=== PATIENT | male | born 1995 | race Caucasian/White ===

== ENCOUNTER 2021-05-06 11:23 | Emergency (ER) | payer OTHER ==
[2021-05-06 11:39] VITALS: RESP 18; TEMP 98.6
[2021-05-06 13:18] VITALS: BP 120/80; PULSE 80
--- NOTE | 2021-05-06 13:25 | ED ---
Overdose HPI - General Chief Complaint: Overdose Stated Complaint: overdose Source: patient Mode of arrival: EMS Limitations: no limitations - History of Present Illness Initial Comments: 26-year-old male presents to the emergency department after he became unresponsive when he was on a walk with his family. The patient states that he is on Suboxone. He normally takes 8 mg daily however has been weaning himself off. States that he has not taken 8 mg in the past week and a half. She took 4 mg for a few days and was down to 2 mg. This morning the patient did take an 8 mg dose of his Suboxone and states that it made him overly sedated. He remembers walking, feeling extremely fatigued and passed out. He denies taking any other sedating medications or illicit drugs. He reports he take his medications from 9 AM. Denies suicidal ideations. Family at bedside stated that he maintained his pulse. They did provide him rescue breaths. EMS arrived and gave him 2 mg intranasal and 2 mg IM of Narcan. Patient did have immediate response. Patient arrives alert, oriented able to answer questions appropriately. No CPR was performed. He denies any recent illnesses. No trauma from his syncopal episode. No other alleviating, precipitating or modifying factors - Related Data Allergies Allergy/AdvReac Type Severity Reaction Status Date / Time No Known Allergies Allergy Verified 05/06/21 11:39 Review of Systems ROS Statement: Those systems with pertinent positive or pertinent negative responses have been documented in the HPI. ROS Other: All systems not noted in ROS Statement are negative. Past Medical History Past Medical History: No Reported History History of Any Multi-Drug Resistant Organisms: None Reported Additional Past Surgical History / Comment(s): finger surgery Past Psychological History: No Psychological Hx Reported Smoking Status: Current every day smoker Past Alcohol Use History: None Reported Past Drug Use History: Heroin, IV Drug Use General Exam Limitations: no limitations Course Vital Signs 05/06/21 05/06/21 11:30 13:16 Temperature 98.6 F Pulse Rate 88 80 Respiratory 18 18 Rate Blood Pressure 137/87 120/80 O2 Sat by Pulse 99 97 Oximetry Medical Decision Making - Medical Decision Making Upon arrival patient is placed in room 23. He is observed for 2 hours. He remains awake and alert. At this time he will be discharged home. Family is instructed to stay with him. He is to not remain alone. If he has any worsening sedation they need to call EMS and have the patient promptly return to the emergency department. The patient understood this. He is to talk to his doctor that prescribes his Suboxone in order to wean off the medication appropriately. Patient agreed to this. He was discharged home in stable condition Disposition Clinical Impression: Accidental drug overdose, Opiate overdose Disposition: HOME SELF-CARE Condition: Stable Instructions (If sedation given, give patient instructions): Adult Overdose (ED) Additional Instructions: Have someone stay with you tonight. Please call EMS and return to the emergency department should you have reoccurrence of your sedation. Is patient prescribed a controlled substance at d/c from ED?: No Referrals: Nonstaff,Physician [Primary Care Provider] - 1-2 days Time of Disposition: 13:25
== END 2021-05-06 13:29 | disposition home or self-care (01) ==
LOC: EC 11:23
DX: T40.2X1A Poisoning by other opioids, accidental (unintentional), initial encounter (principal); F17.200 Nicotine dependence, unspecified, uncomplicated; F12.90 Cannabis use, unspecified, uncomplicated
CPT/HCPCS: 99284